=== PATIENT | male | born 1960 | race Caucasian/White ===

== ENCOUNTER → 2020-10-12 08:11 | Outpatient (BNVA) | payer OTHER, MEDICARE, SELFPAY | PROVIDERS: PCP Internal Medicine; Visit Provider Family Medicine Adult Medicine | DX: M54.16 Radiculopathy, lumbar region (principal); M96.1 Postlaminectomy syndrome, not elsewhere classified | CPT/HCPCS: Q3014 ==

== ENCOUNTER → 2020-10-28 08:26 | Outpatient (BNVA) | payer OTHER, MEDICARE, SELFPAY | PROVIDERS: PCP Internal Medicine; Visit Provider Family Medicine Adult Medicine | DX: Z76.89 Persons encountering health services in other specified circumstances (principal) ==